=== PATIENT | male | born 1975 | race Caucasian/White ===

== ENCOUNTER 2019-02-13 10:45 | Outpatient (CLI) | payer OTHER ==
[~2019-02-13] VITALS: Ht 162.6 cm; Wt 75.0 kg
[2019-02-13 11:11] LABS: HEMATOCRIT 44.6 % (42.0-52.0); HEMOGLOBIN 14.8 g/dl (13.5-18.0); MEAN CELL VOLUME 93 fl (80.0-100.0); MEAN CORPUSCULAR HEMOGLOBIN 31 pg (27.0-31.0); MEAN CORPUSCULAR HGB CONC 33 g/dl (33.0-37.0); PLATELET COUNT 285 K/mm3 (130-400); RED BLOOD COUNT 4.78 M/mm3 (4.20-5.60); REDCELL DISTRIBUTION WIDTH-CV 13.3 % (11.5-14.5)
[2019-02-13] MEDS ORDERED: ZANTAC 150MG T150 MG PO (11:11)
[2019-02-13] MEDS ORDERED: ASPIRIN E.C. 8181 MG PO (11:13)
[2019-02-13] MEDS ORDERED: LOPRESSOR 550 MG/TAB PO (11:13)
[2019-02-13] MEDS ORDERED: PLAVIX 75MG TAB75 MG PO (11:13)
[2019-02-13] MEDS ORDERED: LIPITOR 80MG80 MG PO (11:13)
[2019-02-13] MEDS ORDERED: CENTRUM CHEWAB1 EAC3 PO (11:14)
[2019-02-13 11:18] LABS: PROTHROMBIN TIME 10.8 SECONDS (9.7-12.8)
[2019-02-13 11:27] LABS: CALCIUM 9.3 mg/dL (8.4-10.2); CREATININE, serum 0.8 (0.66-1.25); POTASSIUM 4.2 mmol/L (3.4-5.0)
[2019-02-13 11:30] VITALS: BP 128/72; PULSE 60; TEMP 97.2
[2019-02-13 13:00] VITALS: BP 112/69; PULSE 56; TEMP 97.7
--- NOTE | 2019-02-13 13:00 | NUR ---
RADHA complete per Hallie PALM. Pt resting well, friend at bedside.
[2019-02-13 13:15] VITALS: BP 121/72; PULSE 73
[2019-02-13 13:30] VITALS: BP 135/72; PULSE 60
[2019-02-13 13:45] VITALS: BP 116/77; PULSE 77
--- NOTE | 2019-02-13 13:45 | NUR ---
Pt has ambulated, voided and evans PO intake s n/v. PIV removed with catheter intact.
--- NOTE | 2019-02-13 14:00 | NUR ---
Pt discharged per w/c by nurse with friend.
== END 2019-02-13 15:27 | disposition home or self-care (01) ==
LOC: COL.RAD 10:45
PROVIDERS: Internal Medicine Cardiovascular Disease
DX: I63.9 Cerebral infarction, unspecified (principal)
CPT/HCPCS: J2704; J7030